=== PATIENT | female | born 1985 | race Caucasian/White ===

== ENCOUNTER 2017-03-04 09:26 | Emergency (ER) | payer OTHER ==
[~2017-03-04] VITALS: Ht 160 cm; Wt 97.6 kg
[2017-03-04 09:30] VITALS: BP 117/78
== END 2017-03-04 10:42 | disposition left against medical advice (07) ==
LOC: EME 09:26
DX: M54.9 Dorsalgia, unspecified (principal); Z53.21 Procedure and treatment not carried out due to patient leaving prior to being seen by health care provider